=== PATIENT | female | born 1985 | race Caucasian/White ===

== ENCOUNTER 2017-02-10 18:57 | Emergency (ER) | payer OTHER ==
[~2017-02-10] VITALS: Ht 165.1 cm; Wt 79.5 kg
[2017-02-10 18:58] VITALS: BP 108/63; PULSE 64; RESP 16; O2SAT 96
[2017-02-10 19:23] LABS: BASOPHILS % (AUTO) 0.3 % (0-3); EOSINOPHILS % (AUTO) 1.9 % (0-5); MONOCYTES % (AUTO) 6.4 % (4-12); Mean Corpuscular Hemoglobin 29.8 pg (27.0-35.0); Mean Corpuscular Volume 85.3 fL (81-100); NEUTROPHILS % (AUTO) 51.2 % (40-74); Platelet Count 254 bil/L (150-400)
[2017-02-10 20:03] LABS: TROPONIN T < 0.010 ug/L (0.0-0.011)
[2017-02-10 20:09] LABS: Magnesium 1.9 mg/dL (1.6-2.6)
--- NOTE | 2017-02-10 20:17 | ED.REPORT ---
HPI-Chest Pain Under 40 Date of Service February 10, 2017 ED Provider: Joe Cedillo MD 31 y/o female with a hx of PTSD, depression and anxiety presents to the ED via EMS complaining of intermittent substernal chest pain,onset today. The pt states she woke up feeling anxious and was sent home from work due to worsening chest pain. The pt describes it as heavy, tight and stabbing pain which is constant without any modifying factors. Associated sx include left arm and hand numbness. She states "I keep having episodes where it gets really bad and I'll freak out really bad. I feel like I'm having a heart attack." She has had similar sx before but reports today's sx are significantly worse. The pt forgot to take her Citalopram today. She takes Percocet and Ibuprofen prn for pain. She denies taking Aspirin and antacids. Nursing Notes Stated Complaint: CHEST PAIN Chief Complaint: Chest Pain Nursing Notes Reviewed: Yes Allergies: Uncoded Allergies: SULFA (Allergy, Unknown, 02/10/17) General Time Seen by MD: 19:16 Chief Complaint Chest pain Hx Obtained From: Patient Arrived By: Ambulance Sudden in Onset?: Yes Onset Occurred: 9 - 12 hours ago Symptom Duration: Intermittent Location: : Substernal Quality: Heaviness, Stabbing Radiation: : Arm left: Shoulder left Severity: Current: Severe Severity: Maximum: Severe Recent Healthcare: No recent doctor visit Similar Sx Previous: Yes Past Medical History Past Medical History ANXIETY DEPRESSION PTSD ENDOMETRIOSIS ENDOMETRITIS Past Surgical History HYSTERECTOMY OOPHERECTOMY APPENDECTOMY Smoking History Unknown if Ever Smoker Social History Other Social History: Good social support Ambulatory Status Independent Review of Systems Cardiovascular: Reports: Chest pain Neurologic: Reports: Numbness (Left upper extremity) Psychiatric: Reports: Anxiety Complete sys rev & neg: except as marked. Physical Exam Initial Vital Signs Vital Signs (First) Date Time Temp Pulse Resp B/P Pulse Ox O2 Delivery O2 Flow Rate FiO2 02/10/17 18:58 37 64 16 108/63 96 02/10/17 21:14 Room Air Initial VS: Reviewed Neck: Supple, Full range of motion Extremities: Vascular intact, Neuro intact, No swelling, No tenderness Skin: Warm, Dry, No cyanosis Neurologic: Alert, Oriented, Nonfocal General/Constitutional: Awake, Alert Behavior: Positive: Anxious, Tearful Very anxious and visibly hyperventilating. Respiratory / Chest: Atraumatic, Breath sounds NL, Breath sounds = bilat, No respiratory distress, No rales, No rhonchi, No wheezing Pain in anterior chest wall reproducible with palpation. Cardiovascular: Heart rate NL, Regular rhythm, Heart sounds NL, No gallop, No murmurs, No rubs Abdomen: Atraumatic, Soft, Non-tender, No guarding, No rebound Interpretation & Diagnostics Lab Results Interpretation Result Diagram: 02/10/17190902/10/171909 Test 02/10/17 19:10 02/10/17 21:14 White Blood Count 10.9th/mm3 (3.8-10.1) Red Blood Count 4.96mil/mm3 (3.90-5.20) Hemoglobin 14.8g/dL (12.0-15.6) Hematocrit 42.3% (35.0-46.0) Mean Corpuscular Volume 85.3fL (81-100) Mean Corpuscular Hemoglobin 29.8pg (27.0-35.0) Mean Corpuscular Hemoglobin Concent 35.0% (32.0-37.0) Red Cell Distribution Width 12.3% (12.3-15.4) Platelet Count 254bil/L (150-400) Neutrophils (%) (Auto) 51.2% (40-74) Lymphocytes (%) (Auto) 40.1% (14-46) Monocytes (%) (Auto) 6.4% (4-12) Eosinophils (%) (Auto) 1.9% (0-5) Basophils (%) (Auto) 0.3% (0-3) D-Dimer < 0.50mg/L FEU (<0.50) Sodium Level 140mEq/L (134-144) Potassium Level 4.2mEq/L (3.5-5.2) Chloride Level 103mEq/L (97-108) Carbon Dioxide Level 18mmol/L (18-29) Blood Urea Nitrogen 9mg/dL (6-20) Creatinine 0.57mg/dL (0.57-1.00) Estimat Glomerular Filtration Rate 180mL/min (>59) Glucose Level 80mg/dL (60-99) Calcium Level 9.5mg/dL (8.5-10.1) Magnesium Level 1.9mg/dL (1.6-2.6) Total Bilirubin 0.2mg/dL (0.0-1.2) Aspartate Amino Transf (AST/SGOT) 19U/L (0-50) Alanine Aminotransferase (ALT/SGPT) 15U/L (0-32) Alkaline Phosphatase 64U/L (25-150) Total Protein 7.3g/dL (6.4-8.4) Albumin 4.2g/dL (3.4-5.0) Hold Chicas Top Tube Received (Received) Troponin T 0.010ug/L (0.0-0.011) ECG Interpretation ECG Interpretation: Sinus bradycardia. Rate 46. Atrial premature complexes in couplets. Time: 19:08 Interpreted by: ED physician ECG Interpretation: Sinus bradycardia. Rate 43. Atrial premature complex. Time: 20:42 Interpreted by: ED physician X-Ray Chest Interpretation Chest Xray Interpretation: IMPRESSION: No acute cardiopulmonary disease process. Dictated by: Ernestine Wong MD, PhD on 02/10/2017 at 20:41 Approved by: Ernestine Wong MD, PhD on 02/10/2017 at 20:41 View: Portable, 1 view Interpretation / Wet Read by: Interpret - Radiologist Re-Eval/Medical Decision Med Decision/Clinical Course Lorazepam 1mg IV and asprin given. No change on serial trops and ECG. Improved with lorazepam. Note bradycardia which patient indicates has been commented on before, do not believe it is symptomatic. Dimer is negative. Re-Evaluation/Progress : Time of Eval: 22:39 Patient Status: Condition improved Re-Evaluation/Progress Note: Rechecked pt. Discussed lab, imaging results and diagnosis. Informed the pt of the plan to discharge. Pt understands and agrees with plan. F/U instructions and RTER warning given. All questions addressed. Counseled Regarding: Diagnosis, Lab results, Need for follow-up, When/why to return to ED Discharge & Departure Primary Impression: Non-cardiac chest pain Additional Impressions: Hyperventilating Bradycardia Disposition: Home Discharge Condition All VS Reviewed: Yes Patient Instructions: Costochondritis (ED) Additional Instructions: Emergency Department evaluation included interview, examination, labs ECG with repeat and chest x-ray. No serious cause for chest pains identified tonight. Hyperventilation was noted, treatment with lorazepam for anxiety helped. Continue with ibuprofen 800 mg 3 times a day. Take this with food and use Pepcid [id number] 20 mg twice daily. Follow up with [facility] primary care physician soon. Return emergency Department for fevers, increasing chest pain or increasing shortness of breath. During emergency department evaluation we noted a slow heart rate with rate into the 40s at times. This did not appear to be symptomatic was not a cause for chest pain and vital signs were otherwise normal. Referrals: HERI WILLIAMSON (PCP) Scribe Attestation Portions of this note were transcribed by Lauren Hernandez. I, , personally performed the history, physical exam and medical decision-making;I reviewed and confirmed the accuracy of the information in the transcribed note. Signed by Jair Martin. 02/10/17 22:50 copies to: HERI WILLIAMSON Donald L MD February 10, 2017 20:17 Lauren Hernandez February 10, 2017 20:34
--- NOTE | 2017-02-10 20:43 | DRSVH ---
PROCEDURE: X-RAY CHEST ONE VIEW, PORTABLE ([id number]) INDICATIONS: Chest pain TECHNIQUE: One view of the chest was acquired. COMPARISON: None. FINDINGS: Surgical changes and devices: None. Lungs and pleura: No pleural effusions or pneumothorax. Lungs are clear. Mediastinum: Mediastinal contours appear normal. Heart size is normal. Bones and chest wall: No suspicious bony lesions. Overlying soft tissues appear unremarkable. IMPRESSION: No acute cardiopulmonary disease process. Dictated by: Ernestine Wong MD, PhD on 02/10/2017 at 20:41 Approved by: Ernestine Wong MD, PhD on 02/10/2017 at 20:41
[2017-02-10 21:14] VITALS: BP 106/48; PULSE 56; RESP 16; O2SAT 97
[2017-02-10 22:28] VITALS: BP 104/58; PULSE 48; RESP 16; O2SAT 98
[2017-02-10 22:54] VITALS: BP 109/54; PULSE 48; RESP 16; O2SAT 98
== END 2017-02-10 22:55 | disposition home or self-care (01) ==
LOC: SED 18:57
DX: R07.89 Other chest pain (principal); R06.4 Hyperventilation; R00.1 Bradycardia, unspecified; R20.0 Anesthesia of skin; F32.9 Major depressive disorder, single episode, unspecified
CPT/HCPCS: 36415; 71010; 80053; 83735; 84484; 85025; 85378; 93005; 96374; 99285; J2060